=== PATIENT | female | born 1985 | race African-American/Black ===

== ENCOUNTER 2020-12-29 21:03 | Emergency (ER) | payer OTHER ==
[2020-12-29] MEDS ORDERED: Ibuprofen 800 MG TAB ONE (21:18)
== END 2020-12-29 22:30 | disposition home or self-care (01) ==
LOC: ERS 21:03
DX: S93.401A Sprain of unspecified ligament of right ankle, initial encounter (principal); W01.0XXA Fall on same level from slipping, tripping and stumbling without subsequent striking against object, initial encounter